=== PATIENT | male | born 1965 | race American Indian/Alaskan Native ===

== ENCOUNTER 2021-05-16 07:30 | Emergency (ER) | payer OTHER ==
[2021-05-16 08:36] VITALS: BP 186/104
[2021-05-16] MEDS ORDERED: oxyCODONE /ACETAMINOPHEN 5-325MG TAB PO ONE (09:17)
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
== END 2021-05-16 14:25 | disposition home or self-care (01) ==
LOC: ED 07:30
DX: S97.81XA Crushing injury of right foot, initial encounter (principal); W22.8XXA Striking against or struck by other objects, initial encounter; Y93.89 Activity, other specified; Y92.89 Other specified places as the place of occurrence of the external cause; Y99.8 Other external cause status
CPT/HCPCS: 99283